=== PATIENT | male | born 1995 | race Caucasian/White ===

== ENCOUNTER 2018-04-02 06:53 | Emergency (ER) | payer OTHER ==
[~2018-04-02] VITALS: Ht 170.2 cm; Wt 74.8 kg
[2018-04-02] MEDS ORDERED: MEDROLPACK PO ×2 (07:26→07:31)
[2018-04-02] MEDS ORDERED: AUGMENTIN PO ×2 (07:26→07:31)
[2018-04-02] MEDS ORDERED: TYLENOL 325MG325 MG (07:31)
== END 2018-04-02 15:19 | disposition home or self-care (01) ==
LOC: ER 06:53
DX: R43.0 Anosmia (principal); J33.8 Other polyp of sinus

== ENCOUNTER 2018-12-20 00:36 | Emergency (ER) | payer OTHER ==
[~2018-12-20] VITALS: Ht 167.6 cm; Wt 61.2 kg
[~2018-12-20 00:36] MED LIST: AUGMENTIN PO; MEDROLPACK PO; TYLENOL 325MG325 MG
[2018-12-20] MEDS ORDERED: MONTELUKAST SOD10 MG (00:43)
[2018-12-20] MEDS ORDERED: ZYNCOF 20-400120 ML PO (04:24)
[2018-12-20] MEDS ORDERED: MOBIC15 MG PO ×2 (04:25→04:26)
== END 2018-12-20 04:38 | disposition home or self-care (01) ==
LOC: ER 00:36
DX: J06.9 Acute upper respiratory infection, unspecified (principal); R42 Dizziness and giddiness